=== PATIENT | male | born 1985 | race African-American/Black ===

== ENCOUNTER 2017-10-03 02:40 | Emergency (ER) | payer BC ==
--- NOTE | 2017-10-03 03:50 | PDOC ---
History of Present Illness - General Chief Complaint: Migraine Headache Stated Complaint: headache Time Seen by Provider: 10/03/17 03:49 History Source: Patient - History of Present Illness Initial Comments: 10/03/17 04:16 31-year-old male with history of headaches for the last several months reports that been having headaches today with no symptom relief. Patient reports that normally he takes no medication for the chronic headaches and headaches are usually resolved on its own. This episode has prolonged than normal headaches for the patient. Patient reports photophobia, positive phonophobia. Denies nausea vomiting diarrhea, abdominal pain Past History - Past Medical History Allergies/Adverse Reactions: Allergies Allergy/AdvReac Type Severity Reaction Status Date / Time No Known Allergies Allergy Verified 10/03/17 04:03 Review of Systems - Review of Systems Able to Perform ROS?: Yes Is the patient limited Korean proficient: No Constitutional: No: Symptoms Reported, See HPI, Chills, Diaphoresis, Fever, Loss of Appetite, Malaise, Night Sweats, Weakness, Weight Stable, Unintentional Wgt. Loss, Unexplained wgt Loss, Other HEENTM: Yes: Other (photophobia, phonophobia) *Physical Exam - Vital Signs 10/03/17 04:19 Last Vital Signs Temp Pulse Resp BP Pulse Ox 98.6 F 71 19 121/85 100 10/03/17 03:54 10/03/17 03:54 10/03/17 03:54 10/03/17 03:54 10/03/17 03:54 - Physical Exam General Appearance: Yes: Appropriately Dressed, Mild Distress Respiratory/Chest: positive: Lungs Clear, Normal Breath Sounds Cardiovascular: positive: Regular Rhythm, Regular Rate Gastrointestinal/Abdominal: positive: Normal Bowel Sounds, Soft Musculoskeletal: positive: Normal Inspection Extremity: positive: Normal Capillary Refill, Normal Inspection, Normal Range of Motion, Tender Integumentary: positive: Normal Color, Dry, Warm Neurologic: positive: paper tube grader II-XII NML intact, Fully Oriented, Alert, Normal Mood/ Affect, Normal Response, Motor Strength 5/5 ED Treatment Course - LABORATORY CBC & Chemistry Diagram: 10/03/17 04:00 10/03/17 04:00 Medical Decision Making - Medical Decision Making 10/03/17 05:37 ct: head : Normal brain. No acute intracranial abnormality. No hemorrhage. No visible infarct or mass. Osseous structures are intact. 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 no headache. will d.c home *DC/Admit/Observation/Transfer Diagnosis at time of Disposition: Migraine aura, persistent Qualifiers: Status migrainosus presence: without status migrainosus Intractability: not intractable Qualified Code(s): G43.509 - Persistent migraine aura without cerebral infarction, not intractable, without status migrainosus - Discharge Dispostion Disposition: HOME Condition at time of disposition: Fair - Referrals Referrals: Harris Dwyer MD [Primary Care Provider] - Warren Plasencia DO [Staff Physician] - - Patient Instructions Printed Discharge Instructions: Migraine Headaches (Alternative Therapy) Additional Instructions: drink plenty of fluids take ibuprofen every 6 hours as needed for pain follow up with your doctor as soon as possible. - Post Discharge Activity
[2017-10-03] MEDS ORDERED: METOCLOPRAMIDE HCL INJECTION 10 MG/2 ML VIAL IVPUSH ONE (03:57)
[2017-10-03] MEDS ORDERED: SODIUM CHLORIDE 0.9% 500 ML INFUS.BAG IV ONE (03:57)
[2017-10-03 04:03] VITALS: BP 121/85; PULSE 71; TEMP 98.6; BMI 29.0
--- NOTE | 2017-10-03 04:07 | PDOC ---
*Physical Exam - Vital Signs Last Vital Signs Temp Pulse Resp BP Pulse Ox 98.6 F 71 19 121/85 100 10/03/17 03:54 10/03/17 03:54 10/03/17 03:54 10/03/17 03:54 10/03/17 03:54 ED Treatment Course - LABORATORY CBC & Chemistry Diagram: 10/03/17 04:00 10/03/17 04:00 Medical Decision Making - Medical Decision Making 10/03/17 04:07 agree with care from SYLVIE Molina *DC/Admit/Observation/Transfer Diagnosis at time of Disposition: Migraine aura, persistent - Discharge Dispostion Disposition: HOME Condition at time of disposition: Fair - Referrals Referrals: Warren Plasencia DO [Staff Physician] - Harris Dwyer MD [Primary Care Provider] - - Patient Instructions Printed Discharge Instructions: Migraine Headaches (Alternative Therapy) Additional Instructions: drink plenty of fluids take ibuprofen every 6 hours as needed for pain follow up with your doctor as soon as possible. - Post Discharge Activity Forms/Work/School Notes: Back to Work
[2017-10-03 04:17] LABS: BASO % 0.6 % (0-2.0); EOS % 1.3 % (0-4.5); HEMATOCRIT 41.8 % (35.4-49); HEMOGLOBIN 14.3 GM/dL (11.7-16.9); LYMPH % 44.7 % (8-40); MCH 31.4 pg (25.7-33.7); MCHC 34.2 g/dl (32.0-35.9); MEAN CELL VOLUME 91.9 fl (80-96); MEAN PLT VOLUME 8.3 fl (7.5-11.1); MONO % 8.2 % (3.8-10.2); NEUT % 45.2 % (42.8-82.8); PLATELET COUNT 257 K/MM3 (134-434); RBC 4.55 M/mm3 (4.00-5.60); RDW 13.9 % (11.9-15.9); WHITE BLOOD COUNT 4.5 K/mm3 (4.0-10.0)
[2017-10-03 04:27] LABS: URINE APPEARANCE CLEAR; URINE BILIRUBIN NEGATIVE (<2.0 mg/dL); URINE COLOR STRAW; URINE GLUCOSE (UA) NEGATIVE (NEGATIVE); URINE KETONE NEGATIVE (NEGATIVE); URINE LEUK ESTERASE NEGATIVE (NEGATIVE); URINE NITRITE NEGATIVE (NEGATIVE); URINE PROTEIN NEGATIVE (NEGATIVE); URINE UROBILINOGEN NEGATIVE mg/dL (0.2-1.0)
[2017-10-03 04:42] LABS: ALBUMIN 3.9 g/dl (3.4-5.0); ALK PHOS 65 U/L (45-117); ANION GAP 6 (8-16); BILIRUBIN,TOTAL 0.5 mg/dL (0.2-1.0); BLOOD UREA NITROGEN 11 mg/dL (7-18); CALCIUM 8.5 mg/dL (8.5-10.1); CHLORIDE 107 mmol/L (98-107); CO2 27 mmol/L (21-32); CREATININE 1.2 mg/dL (0.7-1.3); GLUCOSE,RANDOM 93 mg/dL (74-106); SGOT/AST 24 U/L (15-37); SGPT/ALT 27 U/L (12-78); SODIUM 140 mmol/L (136-145); TOT PROT 7.2 g/dl (6.4-8.2)
[2017-10-03 04:46] LABS: INR 1.01 (0.82-1.09); PROTHROMBIN TIME (PATIENT) 11.4 SEC (9.7-13.0)
[2017-10-03] MEDS ORDERED: KETOROLAC TROMETHAMINE 30 MG/1 ML VIAL IVPUSH ONE (05:38)
[2017-10-03] MEDS ORDERED: KETOROLAC TROMETHAMINE 30 MG/1 ML VIAL ONE (05:49)
== END 2017-10-03 06:58 | disposition home or self-care (01) ==
LOC: JER 02:40
PROC: 3E0337Z Introduction of Electrolytic and Water Balance Substance into Peripheral Vein, Percutaneous Approach (ICD-10-PCS; principal; 2017-10-03)
PROC: 3E033GC Introduction of Other Therapeutic Substance into Peripheral Vein, Percutaneous Approach (ICD-10-PCS; 2017-10-03)
PROC: 3E0333Z Introduction of Anti-inflammatory into Peripheral Vein, Percutaneous Approach (ICD-10-PCS; 2017-10-03)
DX: G43.509 Persistent migraine aura without cerebral infarction, not intractable, without status migrainosus (principal)
CPT/HCPCS: 36415; 70450-TC; 80053; 81003; 85025; 85610; 86850; 86900; 86901; 99282-25

== ENCOUNTER 2021-03-16 14:06 | Emergency (ER) | payer BC, OTHER ==
[2021-03-16 14:16] VITALS: BP 116/72; PULSE 50; TEMP 97.6; BMI 31.6
[2021-03-16] MEDS ORDERED: KETOROLAC TROMETHAMINE 60 MG/2 ML VIAL IM ONE (14:52)
[2021-03-16] MEDS ORDERED: KETOROLAC TROMETHAMINE 60 MG/2 ML VIAL ONE (14:53)
== END 2021-03-16 15:51 | disposition home or self-care (01) ==
LOC: JERFT 14:06
PROC: 3E0333Z Introduction of Anti-inflammatory into Peripheral Vein, Percutaneous Approach (ICD-10-PCS; principal; 2021-03-16)
DX: K08.89 Other specified disorders of teeth and supporting structures (principal)
CPT/HCPCS: 99284-25